=== PATIENT | female | born 1995 | race Caucasian/White ===

== ENCOUNTER 2023-05-30 16:59 | Emergency (ER) | payer OTHER, SELFPAY ==
--- NOTE | ~2023-05-30 | XR_ITS ---
EXAMINATION: XR LUMBOSACRAL SPINE CLINICAL INFORMATION: Pain status-post fall. COMPARISON: None TECHNIQUE: AP and lateral views of the lumbar spine and lateral view of the lumbosacral junction. FINDINGS: The vertebral bodies and posterior elements are normal. The disc spaces are preserved and the vertebral alignment is normal. The paraspinal soft tissues are normal. XR/XR lumbar spine 2-3V IMPRESSION: Unremarkable examination. EXAMINATION: XR SACRUM AND COCCYX CLINICAL INFORMATION: Pain status-post fall. COMPARISON: None available. TECHNIQUE: 3 frontal and lateral views of the sacrum and coccyx were obtained. FINDINGS: Bony mineralization is normal. There is retrolisthesis of a mid coccygeal segment by 4 mm. No fracture is seen. There is a left pelvic phlebolith. No soft tissue gas or foreign body is seen. IMPRESSION: A 4 mm mid coccygeal retrolisthesis is noted, of uncertain chronicity. Please correlate clinically. No acute fracture line is noted.
--- NOTE | ~2023-05-30 | XR_ITS ---
EXAMINATION: XR LUMBOSACRAL SPINE CLINICAL INFORMATION: Pain status-post fall. COMPARISON: None TECHNIQUE: AP and lateral views of the lumbar spine and lateral view of the lumbosacral junction. FINDINGS: The vertebral bodies and posterior elements are normal. The disc spaces are preserved and the vertebral alignment is normal. The paraspinal soft tissues are normal. XR/XR sacrum coccyx min 2V IMPRESSION: Unremarkable examination. EXAMINATION: XR SACRUM AND COCCYX CLINICAL INFORMATION: Pain status-post fall. COMPARISON: None available. TECHNIQUE: 3 frontal and lateral views of the sacrum and coccyx were obtained. FINDINGS: Bony mineralization is normal. There is retrolisthesis of a mid coccygeal segment by 4 mm. No fracture is seen. There is a left pelvic phlebolith. No soft tissue gas or foreign body is seen. IMPRESSION: A 4 mm mid coccygeal retrolisthesis is noted, of uncertain chronicity. Please correlate clinically. No acute fracture line is noted.
[2023-05-30 17:45] VITALS: BP 134/77; PULSE 88; RESP 18; TEMP 36.5; O2SAT 99; BMI 28.4
[2023-05-30 17:46] VITALS: BP 160/92; PULSE 120; O2SAT 95
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
== END 2023-05-30 23:04 | disposition left against medical advice (07) ==
PROVIDERS: Emergency Provider Emergency Medicine
DX: Z04.1 Encounter for examination and observation following transport accident (principal); M54.50 Low back pain, unspecified; Z53.21 Procedure and treatment not carried out due to patient leaving prior to being seen by health care provider
CPT/HCPCS: 72100; 72220; 99281; 99283